=== PATIENT | female | born 1985 | race Two or more races ===

== ENCOUNTER 2018-09-12 06:18 | Emergency (ER) | payer MEDICAID ==
[~2018-09-12] VITALS: Ht 165.1 cm; Wt 95.3 kg
[2018-09-12 06:24] VITALS: BP 129/82
[2018-09-12] MEDS ORDERED: IBUPROFEN 800 MG TAB PO ONE (07:30)
== END 2018-09-12 07:46 | disposition home or self-care (01) ==
LOC: ER 06:18
DX: S93.492A Sprain of other ligament of left ankle, initial encounter (principal); X58.XXXA Exposure to other specified factors, initial encounter; Y93.39 Activity, other involving climbing, rappelling and jumping off; Y99.8 Other external cause status; Y92.89 Other specified places as the place of occurrence of the external cause
CPT/HCPCS: 73610; 73630